=== PATIENT | female | born 1995 | race Two or more races ===

== ENCOUNTER 2023-08-29 19:45 | Inpatient (IN) | payer MEDICAID ==
[~2023-08-29] VITALS: Ht 152.4 cm; Wt 53.4 kg
[2023-08-29 20:58] LABS: ALCOHOL, URINE DRUG SCREEN POSITIVE (NEGATIVE); AMPHET/METH SCREEN,URINE NEGATIVE (NEGATIVE); BARBITURATE SCREEN, URINE NEGATIVE (NEGATIVE); BENZODIAZEPINES SCREEN,URINE NEGATIVE (NEGATIVE); CANNABINOID SCREEN,URINE POSITIVE (NEGATIVE); COCAINE SCREEN,URINE NEGATIVE (NEGATIVE); METHADONE SCREEN, URINE NEGATIVE (NEGATIVE); OPIATE SCREEN,URINE NEGATIVE (NEGATIVE); PHENCYCLIDINE SCREEN,URINE NEGATIVE (NEGATIVE)
[2023-08-29 21:54] LABS: COVID AG,FIA SOURCE NASAL SWAB
[2023-08-29 22:05] LABS: BASOPHILS % (AUTO) 0.5 % (0.0-2.0); HEMATOCRIT 37.6 % (36-46); HEMOGLOBIN 12.4 g/dL (12.0-16.0); LYMPHOCYTES # (AUTO) 1.8 K/uL (1.0-4.8); LYMPHOCYTES % (AUTO) 26.1 % (22.0-44.0); MEAN CORPUSCULAR HEMOGLOBIN 29.2 pg (26.0-34.0); MEAN CORPUSCULAR VOLUME 89 fL (80-100); MONOCYTES # (AUTO) 0.5 K/uL (0.1-1.0); MONOCYTES % (AUTO) 7.4 % (2.0-9.0); NEUTROPHILS # (AUTO) 4.4 K/uL (1.8-7.7); PLATELET COUNT (AUTO) 192 K/uL (150-450); RED BLOOD CELL COUNT(AUTO) 4.25 MIL/uL (4.00-5.20); RED CELL DISTRIBUTION WIDTH 13.3 % (11.5-14.5); WHITE BLOOD COUNT (AUTO) 6.9 K/uL (4.5-11.0)
[2023-08-29 22:18] LABS: ALCOHOL, BLOOD (SERUM) 52 mg/dL (0-10); ANION GAP 7 mmol/L (8-16); CALCIUM, TOTAL 8.2 mg/dL (8.8-10.5); CARBON DIOXIDE 30 mmol/L (22-29); CHLORIDE 107 mmol/L (98-107); CREATININE 0.72 mg/dL (0.60-1.30); GLOMERULAR FILTR. RATE CALC > 60 mL/min (>60); GLUCOSE,RANDOM 100 mg/dL (70-110); POTASSIUM 3.8 mmol/L (3.5-5.1); SODIUM SERUM 144 mmol/L (136-145); UREA NITROGEN, BLOOD 8 mg/dL (7-18)
[2023-08-29 22:24] LABS: ALANINE AMINOTRANSFERASE 36 U/L (12-78); ALBUMIN 3.5 g/dL (3.4-5.0); ALKALINE PHOSPHATASE 48 U/L (46-116); ASPARTATE AMINOTRANSFERASE 26 U/L (15-37); BILIRUBIN,TOTAL 0.3 mg/dL (0.1-1.0); TOTAL PROTEIN, SERUM 6.7 g/dL (6.4-8.2)
[2023-08-29 22:26] LABS: SARS-COV2 (COVID) ANTIGEN,FIA Negative (Negative)
[2023-08-29] MEDS ORDERED: ZOLPIDEM TARTRATE 10 MG TABLET PO PRN (22:30)
[2023-08-29] MEDS ORDERED: LORazepam 2 MG TABLET PO PRN (22:30)
[2023-08-29] MEDS ORDERED: OLANZapine 5 MG RAPDIS TABLET PO PRN (22:30)
[2023-08-30 04:02] VITALS: RESP 18
[2023-08-30 08:24] VITALS: BP 113/75; PULSE 74; RESP 16; TEMP 97.9; O2SAT 96
[2023-08-30 09:24] LABS: CHOL/HDL RATIO 2.2 (3.9-5.7); CHOLESTEROL 125 mg/dL (131-200); FREE T4 (FREE THYROXINE) 0.89 ng/dL (0.76-1.46); HCG,QUANTITATIVE < 1 mIU/mL (0-6); HDL CHOLESTEROL 57 mg/dL (40-60); LDL CHOL (CALC.) 51 mg/dL (0-130); THYROID STIMULATING HORMONE 1.78 uIU/mL (0.36-3.74); TRIGLYCERIDES 87 mg/dL (15-150)
[2023-08-30] MEDS ORDERED: HydrOXYzine PAMOATE 50 MG CAPSULE PO PRN (11:00)
[2023-08-30] MEDS ORDERED: PROMETHAZINE HCL 25 MG TABLET PO PRN (11:00)
[2023-08-30] MEDS ORDERED: MAG HYDROX/ALUMINUM HYD/SIMETH ES 30 ML SUSPENSION UDCUP PO PRN (11:00)
[2023-08-30] MEDS ORDERED: TUBERCULIN, PURIFIED PROTEIN DERIVATIVE 5 TU/0.1 ML SYRINGE ID ONE (11:00)
[2023-08-30] MEDS ORDERED: GuaiFENesin/D-METHORPHAN [SUGAR-FREE] 200-20MG/10 ML SYRUP UDCUP PO PRN (11:00)
[2023-08-30] MEDS ORDERED: ACETAMINOPHEN 325 MG TABLET PO PRN (11:00)
[2023-08-30] MEDS ORDERED: MAGNESIUM HYDROXIDE SUSPENSION 30 ML UDCUP PO PRN (11:00)
[2023-08-30] MEDS ORDERED: LOPERAMIDE HCL 2 MG CAPSULE PO PRN (11:00)
[2023-08-30] MEDS: OLANZapine 5 MG RAPDIS TABLET PO SCH (13:36)
[2023-08-30] MEDS: DIVALPROEX SODIUM 500 MG ER TABLET PO SCH ×2 (13:36→16:51)
[2023-08-30] MEDS: THIAMINE 100 MG TABLET PO SCH (16:51)
[2023-08-30] MEDS: MELATONIN 5 MG TABLET PO SCH (20:11)
[2023-08-30 20:24] VITALS: BP 121/76; PULSE 67; RESP 17; TEMP 98.3; O2SAT 98
[2023-08-31 08:12] VITALS: BP 118/76; PULSE 74; RESP 16; TEMP 97.6; O2SAT 98
[2023-08-31] MEDS: NALTREXONE HCL 50 MG TABLET PO SCH (08:39)
[2023-08-31] MEDS: FLUoxetine HCL 20 MG CAPSULE PO SCH (08:39)
[2023-08-31] MEDS: OMEGA-3/DHA/EPA/FISH OIL 1,000 MG CAPSULE PO SCH (08:40)
[2023-08-31] MEDS: MULTIVITAMINS WITH MINERALS, THERAPEUTIC TABLET PO SCH (08:40)
[2023-08-31] MEDS: FOLIC ACID 1 MG TABLET PO SCH (08:41)
[2023-08-31 08:53] LABS: CHOL/HDL RATIO 2.3 (3.9-5.7); FREE T4 (FREE THYROXINE) 1.16 ng/dL (0.76-1.46); THYROID STIMULATING HORMONE 0.85 uIU/mL (0.36-3.74)
[2023-08-31 08:57] LABS: HEMOGLOBIN A1C 5.2 % (3.8-5.6)
[2023-08-31] MEDS ORDERED: NALT50TA33 PO (14:48)
[2023-08-31] MEDS ORDERED: DIVA500T69 PO (14:48)
[2023-08-31] MEDS ORDERED: MELA5TAB40 PO (14:48)
[2023-08-31] MEDS ORDERED: FLUO20CA36 PO (14:48)
[2023-08-31] MEDS ORDERED: OLAN10TA26 PO (14:48)
[2023-08-31] MEDS: DIVALPROEX SODIUM 500 MG ER TABLET PO SCH (20:39)
[2023-08-31] MEDS: OLANZapine 10 MG RAPDIS TABLET PO SCH (20:39)
[2023-08-31 20:40] VITALS: BP 120/69; PULSE 96; RESP 18; TEMP 98.4; O2SAT 98
[2023-09-01 08:41] VITALS: BP 119/76; PULSE 74; RESP 16; TEMP 98; O2SAT 99
[2023-09-01] MEDS ORDERED: FLUO20CA36 PO (11:23)
[2023-09-01] MEDS ORDERED: DIVA500T69 PO (11:23)
[2023-09-01] MEDS ORDERED: OLAN10TA26 PO (11:23)
[2023-09-01] MEDS ORDERED: NALT50TA33 PO (11:23)
[2023-09-01] MEDS ORDERED: MELA5TAB40 PO (11:23)
[2023-09-01] MEDS ORDERED: OMEG-135 PO (11:23)
== END 2023-09-01 17:01 | disposition home or self-care (01) | DRG 750 ==
LOC: EMS 19:46 → B3A 23:05
PROVIDERS: ADMIT Psychiatry & Neurology Psychiatry; ATTEND Psychiatry & Neurology Psychiatry
PROC: GZHZZZZ Group Psychotherapy (ICD-10-PCS; principal; 2023-08-30)
PROC: GZ51ZZZ Individual Psychotherapy, Behavioral (ICD-10-PCS; 2023-08-30)
PROC: GZ56ZZZ Individual Psychotherapy, Supportive (ICD-10-PCS; 2023-08-31)
DX: F25.9 Schizoaffective disorder, unspecified (principal); R45.851 Suicidal ideations; F17.210 Nicotine dependence, cigarettes, uncomplicated; K21.9 Gastro-esophageal reflux disease without esophagitis; F10.90 Alcohol use, unspecified, uncomplicated; F12.90 Cannabis use, unspecified, uncomplicated; Z20.822 Contact with and (suspected) exposure to COVID-19
CPT/HCPCS: 80053; 80061; 80164; 80307; 83036; 84439; 84443; 84702; 85025; 86592; 99285; G0480; Q9967

== ENCOUNTER 2024-02-17 09:17 | Inpatient (IN) | payer SELFPAY ==
[~2024-02-17] VITALS: Ht 152.4 cm; Wt 49.0 kg
[~2024-02-17 09:17] MED LIST: DIVA500T69 PO; FLUO-418 PO; MELA5TAB40 PO; NALT50TA33 PO; OLAN10TA26 PO; OMEG-135 PO
[2024-02-17 10:16] LABS: COVID AG,FIA SOURCE NASAL SWAB
[2024-02-17 10:44] LABS: SARS-COV2 (COVID) ANTIGEN,FIA Negative (Negative)
[2024-02-17 11:29] LABS: BASOPHILS % (AUTO) 0.9 % (0.0-2.0); EOSINOPHILS % (AUTO) 2.2 % (1.0-6.0); HEMOGLOBIN 14.2 g/dL (12.0-16.0); LYMPHOCYTES # (AUTO) 1.4 K/uL (1.0-4.8); LYMPHOCYTES % (AUTO) 29.7 % (22.0-44.0); MEAN CORPUSCULAR HEMOGLOBIN 29.4 pg (26.0-34.0); MEAN CORPUSCULAR VOLUME 89 fL (80-100); MONOCYTES # (AUTO) 0.3 K/uL (0.1-1.0); MONOCYTES % (AUTO) 6.4 % (2.0-9.0); NEUTROPHILS % (AUTO) 60.8 % (40.0-70.0); PLATELET COUNT (AUTO) 209 K/uL (150-450); RED BLOOD CELL COUNT(AUTO) 4.84 MIL/uL (4.00-5.20); RED CELL DISTRIBUTION WIDTH 13.3 % (11.5-14.5); WHITE BLOOD COUNT (AUTO) 4.9 K/uL (4.5-11.0)
[2024-02-17 11:39] LABS: ALCOHOL, BLOOD (SERUM) 121 mg/dL (0-10)
[2024-02-17 12:02] LABS: ANION GAP 13 mmol/L (8-16); CALCIUM, TOTAL 8.3 mg/dL (8.8-10.5); CARBON DIOXIDE 22 mmol/L (22-29); CHLORIDE 106 mmol/L (98-107); GLOMERULAR FILTR. RATE CALC > 60 mL/min (>60); GLUCOSE,RANDOM 97 mg/dL (70-110); POTASSIUM 3.7 mmol/L (3.5-5.1); SODIUM SERUM 141 mmol/L (136-145); UREA NITROGEN, BLOOD 6 mg/dL (7-18)
[2024-02-17] MEDS ORDERED: LOPERAMIDE HCL 2 MG CAPSULE PO PRN (12:15)
[2024-02-17] MEDS ORDERED: ZOLPIDEM TARTRATE 10 MG TABLET PO PRN (12:15)
[2024-02-17] MEDS ORDERED: HALOPERIDOL 5 MG TABLET PO PRN (12:15)
[2024-02-17] MEDS ORDERED: MAG HYDROX/ALUMINUM HYD/SIMETH ES 30 ML SUSPENSION UDCUP PO PRN (12:15)
[2024-02-17] MEDS ORDERED: MAGNESIUM HYDROXIDE SUSPENSION 30 ML UDCUP PO PRN (12:15)
[2024-02-17 15:54] VITALS: O2SAT 97
[2024-02-17 20:50] VITALS: BP 157/97; PULSE 63; RESP 16; TEMP 97.6; O2SAT 98
[2024-02-18 08:09] VITALS: BP 149/89; PULSE 98; RESP 16; TEMP 97.6; O2SAT 98
[2024-02-18] MEDS: OMEGA-3/DHA/EPA/FISH OIL 1,000 MG CAPSULE PO SCH (10:45)
[2024-02-18] MEDS: ARIPiprazole 10 MG TABLET PO SCH ×2 (10:45)
[2024-02-18] MEDS: FLUoxetine HCL 20 MG CAPSULE PO SCH (10:45)
[2024-02-18] MEDS: SERTRALINE HCL 50 MG TABLET PO SCH (13:14)
[2024-02-18 16:18] VITALS: BP 148/86; PULSE 96; RESP 16; TEMP 97.4; O2SAT 98
[2024-02-18] MEDS: ACETAMINOPHEN 325 MG TABLET PO PRN (18:52)
[2024-02-18 23:26] VITALS: RESP 16
[2024-02-19 08:09] VITALS: BP 129/79; PULSE 86; RESP 16; TEMP 98; O2SAT 97
[2024-02-19] MEDS: LORazepam 2 MG TABLET PO PRN (20:01)
[2024-02-19 20:17] VITALS: BP 108/81; PULSE 79; RESP 16; TEMP 97.4; O2SAT 98
[2024-02-20 08:21] VITALS: BP 137/91; PULSE 99; RESP 18; TEMP 97.6; O2SAT 96
[2024-02-20 20:33] VITALS: BP 145/91; PULSE 80; RESP 18; TEMP 98; O2SAT 96
[2024-02-21 08:41] VITALS: BP 130/91; PULSE 86; RESP 17; TEMP 97.5; O2SAT 97
[2024-02-21 20:27] VITALS: BP 122/71; PULSE 75; RESP 12; O2SAT 97
[2024-02-21 21:34] VITALS: BP 122/71; PULSE 75; RESP 12; O2SAT 97
[2024-02-22 08:29] VITALS: BP 146/99; PULSE 99; RESP 16; TEMP 97.8; O2SAT 97
[2024-02-22 20:15] VITALS: BP 152/74; PULSE 77; RESP 18; TEMP 97.7; O2SAT 96
[2024-02-23 08:12] VITALS: BP 106/69; PULSE 74; RESP 16; TEMP 97.6; O2SAT 98
[2024-02-23] MEDS ORDERED: ARIP10TA38 PO ×2 (13:28→15:52)
[2024-02-23] MEDS ORDERED: SERT-158 PO (13:28)
[2024-02-23] MEDS ORDERED: SERT-439 PO (15:52)
== END 2024-02-23 13:40 | disposition home or self-care (01) | DRG 885 ==
LOC: EMS 09:17 → B3A 16:16
PROVIDERS: ADMIT Psychiatry & Neurology Psychiatry; ATTEND Psychiatry & Neurology Psychiatry
PROC: GZHZZZZ Group Psychotherapy (ICD-10-PCS; principal; 2024-02-18)
DX: F25.0 Schizoaffective disorder, bipolar type (principal); G47.00 Insomnia, unspecified; E78.5 Hyperlipidemia, unspecified; Z20.822 Contact with and (suspected) exposure to COVID-19; F41.9 Anxiety disorder, unspecified; Z79.899 Other long term (current) drug therapy
CPT/HCPCS: 80048; 84703; 85025; 99285; G0480